=== PATIENT | female | born 1995 | race Caucasian/White ===

== ENCOUNTER 2019-01-19 01:26 | Emergency (ER) | payer OTHER ==
[~2019-01-19] VITALS: Ht 152.4 cm; Wt 125.6 kg
--- NOTE | 2019-01-19 01:42 | NUR ---
PT HERE NOTING N/V FOR APPROX 1-2 WEEKS, ALSO LOWER ABD PAIN, NOTES THAT SHE HAS HAD 2 PREGNANCIES NONE THROUGH TO END. STATES LNMP APPROX ONE MONTH AGO, UNSURE IF AND HAS N OT DONE HOME TEST.
[2019-01-19 01:59] LABS: HCG UR SG 1.022 (1.003-1.030); MICROSCOPIC NOT IND
[2019-01-19 02:00] LABS: CULTURE INDICATED? NO
[2019-01-19] MEDS ORDERED: ONDANSETRON ODT 8 MG PO ONE (02:00)
[2019-01-19] MEDS ORDERED: ONDANSETRON ODT 4 MG ONE (02:10)
--- NOTE | 2019-01-19 02:17 | NUR ---
PT MEDICATED PER MAR. URINE TUBED TO LAB
[2019-01-19 02:22] LABS: ALANINE AMINOTRANSFERASE 37 U/L (12-78); ALBUMIN 3.5 g/dL (3.4-5.0); ANION GAP 7 mmol/L (5-15); CALCIUM 8.6 mg/dL (8.5-10.1); CHLORIDE 106 mmol/L (98-107); CREATININE 0.63 mg/dL (0.55-1.02)
[2019-01-19 02:25] LABS: BASOPHILS # (AUTO) 0.02 x10^3/uL (0-0.1); BASOPHILS % (AUTO) 0 % (0-1); EOSINOPHILS # (AUTO) 0.05 x10^3/uL (0-0.4); EOSINOPHILS % (AUTO) 1 % (1-7); LYMPHOCYTES # (AUTO) 2.02 x10^3/uL (1-3.4); LYMPHOCYTES % (AUTO) 22 % (22-44); MD NO; MEAN CORPUSCULAR HEMOGLOBIN 30.2 pg (27.0-34.8); MEAN CORPUSCULAR HGB CONC 34.1 g/dL (32.4-35.8); MEAN CORPUSCULAR VOLUME 88.5 fL (80-100); MEAN PLATELET VOLUME 8.2 fL (7.4-10.4); MONOCYTES # (AUTO) 0.65 x10^3/uL (0.2-0.8); MONOCYTES % (AUTO) 7 % (2-9); NEUTROPHILS % (AUTO) 71 % (42-75); PLATELET COUNT 339 x10^3/uL (130-400); RED BLOOD COUNT 4.23 x10^6/uL (3.82-5.3)
[2019-01-19 02:39] LABS: ALKALINE PHOSPHATASE 53 U/L (45-117); BILIRUBIN,TOTAL 0.3 mg/dL (0.2-1.0); TOTAL PROTEIN 7.3 g/dL (6.4-8.2)
--- NOTE | 2019-01-19 03:02 | NUR ---
PATIENT BACK FROM US.
--- NOTE | 2019-01-19 03:37 | NUR ---
PT D/C WITH D/C SUMMARY AND SCRIPTS. ALL QUESTIONS ANSWERED. PT VERBALIZES UNDERSTANDING OF NEED TO F/U WITH OB. PT DENIES ANY OTHER NEEDS PERTAINING TO THIS VISIT. WORK NOTE PROVIDED FOR PT AND SPOUSE.
[2019-01-19 03:38] VITALS: BP 109/71
== END 2019-01-19 03:40 | disposition home or self-care (01) ==
LOC: ED 02:02
DX: O21.9 Vomiting of pregnancy, unspecified (principal); R10.2 Pelvic and perineal pain; Z3A.08 8 weeks gestation of pregnancy
CPT/HCPCS: 36415; 76801; 80053; 81003; 81025; 83690; 84702; 85025; 99284; Q0162

== ENCOUNTER 2019-01-30 16:32 | Emergency (ER) | payer OTHER ==
[~2019-01-30] VITALS: Ht 154.9 cm; Wt 123.9 kg
[2019-01-30 16:34] VITALS: BP 128/72
[2019-01-30 17:07] LABS: BASOPHILS % (AUTO) 0 % (0-1); EOSINOPHILS # (AUTO) 0.04 x10^3/uL (0-0.4); EOSINOPHILS % (AUTO) 1 % (1-7); LYMPHOCYTES # (AUTO) 1.77 x10^3/uL (1-3.4); LYMPHOCYTES % (AUTO) 23 % (22-44); MD NO; MEAN CORPUSCULAR HEMOGLOBIN 30.3 pg (27.0-34.8); MEAN CORPUSCULAR HGB CONC 34.1 g/dL (32.4-35.8); MEAN CORPUSCULAR VOLUME 88.8 fL (80-100); MEAN PLATELET VOLUME 8.2 fL (7.4-10.4); MONOCYTES # (AUTO) 0.49 x10^3/uL (0.2-0.8); MONOCYTES % (AUTO) 6 % (2-9); NEUTROPHILS # (AUTO) 5.57 x10^3/uL (1.8-6.8); NEUTROPHILS % (AUTO) 71 % (42-75); PLATELET COUNT 318 x10^3/uL (130-400); RED BLOOD COUNT 4.63 x10^6/uL (3.82-5.3); RED CELL DISTRIBUTION WIDTH 12.8 % (9.6-15.2)
[2019-01-30 17:19] LABS: ALANINE AMINOTRANSFERASE 27 U/L (12-78); ALBUMIN 3.5 g/dL (3.4-5.0); ANION GAP 7 mmol/L (5-15); CALCIUM 8.9 mg/dL (8.5-10.1); CHLORIDE 108 mmol/L (98-107); CREATININE 0.54 mg/dL (0.55-1.02)
[2019-01-30 17:30] LABS: MICROSCOPIC NOT IND
[2019-01-30 17:36] LABS: CULTURE INDICATED? NO
[2019-01-30 17:37] LABS: ALKALINE PHOSPHATASE 50 U/L (45-117); BILIRUBIN,TOTAL 0.3 mg/dL (0.2-1.0); TOTAL PROTEIN 7.5 g/dL (6.4-8.2)
--- NOTE | 2019-01-30 18:14 | NUR ---
NEPTALI RN: RN AT BEDSIDE TO [facility], SPECIMEN WALKED TO LAB.
[2019-01-30 18:40] LABS: CLUE CELLS NONE SEEN (NONE SEEN); WET PREP WBCS NONE SEEN (FEW)
== END 2019-01-30 20:00 | disposition home or self-care (01) ==
LOC: ED 17:06
DX: O20.9 Hemorrhage in early pregnancy, unspecified (principal); Z3A.09 9 weeks gestation of pregnancy
CPT/HCPCS: 36415; 76801; 80053; 81003; 84702; 85025; 87210; 87491; 87591; 87808; 99284

== ENCOUNTER 2019-08-28 03:50 | Inpatient (IN) | payer OTHER ==
[~2019-08-28] VITALS: Ht 157.5 cm; Wt 137.7 kg
[2019-08-28] MEDS: LACTATED RINGERS 1,000 ML IV SCH ×3 (06:30→19:24)
[2019-08-28] MEDS ORDERED: OXYTOCIN 30U/ 0.9% NaCL 500ML 500 ML IV ONE (06:32)
[2019-08-28 06:36] VITALS: BP 129/73
[2019-08-28] MEDS ORDERED: PREN1TAB60 PO (06:36)
[2019-08-28] MEDS ORDERED: OMEG-14 PO (06:36)
[2019-08-28] MEDS ORDERED: NEWBORN KIT ONE (06:43)
[2019-08-28] MEDS ORDERED: TERBUTALINE 1 MG/ML, 1ML IVPush PRN (07:00)
[2019-08-28] MEDS ORDERED: TERBUTALINE 1 MG/ML, 1ML SQ PRN (07:00)
[2019-08-28] MEDS ORDERED: ONDANSETRON 2MG/ML, 2ML IVPush PRN (07:00)
[2019-08-28] MEDS ORDERED: METOCLOPRAMIDE 5 MG/ML, 2ML IVPush PRN (07:00)
[2019-08-28] MEDS ORDERED: FENTANYL PF 100 MCG/2ML IV PRN (07:00)
[2019-08-28] MEDS ORDERED: SODIUM CITRATE/CITRIC ACID 30 ML UDC PO PRN (07:00)
[2019-08-28] MEDS ORDERED: CALCIUM CARBONATE 500 MG TAB.CHEW PO PRN (07:00)
[2019-08-28 07:05] LABS: BASOPHILS # (AUTO) 0.01 x10^3/uL (0-0.1); BASOPHILS % (AUTO) 0 % (0-1); EOSINOPHILS # (AUTO) 0.04 x10^3/uL (0-0.4); EOSINOPHILS % (AUTO) 1 % (1-7); LYMPHOCYTES # (AUTO) 1.87 x10^3/uL (1-3.4); LYMPHOCYTES % (AUTO) 25 % (22-44); MD NO; MEAN CORPUSCULAR HEMOGLOBIN 29.9 pg (27.0-34.8); MEAN CORPUSCULAR HGB CONC 32.9 g/dL (32.4-35.8); MEAN CORPUSCULAR VOLUME 90.9 fL (80-100); MEAN PLATELET VOLUME 9.3 fL (7.4-10.4); MONOCYTES # (AUTO) 0.49 x10^3/uL (0.2-0.8); MONOCYTES % (AUTO) 6 % (2-9); NEUTROPHILS # (AUTO) 5.18 x10^3/uL (1.8-6.8); NEUTROPHILS % (AUTO) 68 % (42-75); PLATELET COUNT 232 x10^3/uL (130-400); RED BLOOD COUNT 3.91 x10^6/uL (3.82-5.3); RED CELL DISTRIBUTION WIDTH 14.4 % (9.6-15.2)
[2019-08-28] MEDS ORDERED: MISOPROSTOL 25 MCG TABLET ONE (07:30)
[2019-08-28] MEDS ORDERED: MISOPROSTOL 25 MCG TABLET VG PRN (07:30)
[2019-08-28] MEDS ORDERED: OXYTOCIN 30U/ 0.9% NaCL 500ML 500 ML IV PRN (11:59)
[2019-08-28] MEDS ORDERED: LIDOCAINE 1%, 20ML ONE (12:03)
[2019-08-28] MEDS ORDERED: OXYTOCIN 30U/ 0.9% NaCL 500ML 500 ML ONE (12:04)
[2019-08-28] MEDS ORDERED: MISOPROSTOL 200 MCG TABLET ONE (12:04)
[2019-08-28] MEDS ORDERED: FENTANYL PF 100 MCG/2ML ONE ×2 (18:14→19:16)
[2019-08-28] MEDS: FENTANYL PF 100 MCG/2ML IVPush PRN ×2 (18:19→19:18)
[2019-08-28] MEDS: D5%-LACTATED RINGERS 1,000 ML IV SCH (18:33)
[2019-08-28] MEDS ORDERED: FENTANYL/BUPIV./NS/PF 250 ML EPIDCONT SCH (18:56)
[2019-08-28] MEDS ORDERED: FENTANYL PF 500 MCG, BUPIVACAINE/PF 0.5%, 30ML 62.5 ML in SODIUM CHLORIDE 0.9% 177.5 ML EPIDCONT SCH ×2 (19:30→20:00)
[2019-08-28] MEDS ORDERED: BUPIVACAINE 0.25% ONE (19:36)
[2019-08-29] MEDS: LACTATED RINGERS 1,000 ML IV SCH ×3 (08:07→23:52)
[2019-08-29] MEDS ORDERED: LACTATED RINGERS 1,000 ML INTUTE SCH (09:00)
[2019-08-29] MEDS ORDERED: LACTATED RINGERS 1,000 ML INTUTE PRN (09:00)
[2019-08-29] MEDS: D5%-LACTATED RINGERS 1,000 ML IV SCH (11:07)
[2019-08-29] MEDS ORDERED: SODIUM CITRATE/CITRIC ACID 30 ML UDC ONE (11:28)
[2019-08-29] MEDS ORDERED: METOCLOPRAMIDE 5 MG/ML, 2ML ONE (11:28)
[2019-08-29] MEDS ORDERED: CEFAZOLIN 1,000 MG ONE ×2 (13:32→13:33)
[2019-08-29] MEDS ORDERED: FENTANYL PF 100 MCG/2ML ONE (13:32)
[2019-08-29] MEDS ORDERED: OXYTOCIN 10 UNITS/ML, 1ML ONE (13:33)
[2019-08-29] MEDS ORDERED: LIDOCAINE 2% 100MG/5ML SYRINGE ONE (13:34)
[2019-08-29] MEDS ORDERED: LIDOCAINE-MPF 2% ,5ML ONE (13:53)
[2019-08-29] MEDS: OXYTOCIN 30U/ 0.9% NaCL 500ML 500 ML IV SCH ×2 (13:59→23:52)
[2019-08-29] MEDS ORDERED: LACTATED RINGERS 1,000 ML IV SCH (13:59)
[2019-08-29] MEDS ORDERED: SIMETHICONE 80 MG CHEW TAB PO PRN (14:00)
[2019-08-29] MEDS ORDERED: MISOPROSTOL 200 MCG TABLET PR PRN (14:00)
[2019-08-29] MEDS ORDERED: BISACODYL 10 MG SUPP PR PRN (14:00)
[2019-08-29] MEDS ORDERED: CARBOPROST TROMETHAMINE 250 MCG/ML, 1ML IM PRN (14:00)
[2019-08-29] MEDS ORDERED: OXYcodone/APAP 5/325MG TABLET PO PRN (14:00)
[2019-08-29] MEDS ORDERED: ACETAMINOPHEN 325 MG TABLET PO PRN (14:00)
[2019-08-29] MEDS ORDERED: ONDANSETRON 2MG/ML, 2ML IV PRN ×2 (14:00→14:30)
[2019-08-29] MEDS ORDERED: GLYCERIN ADULT SUPP PR PRN (14:00)
[2019-08-29] MEDS ORDERED: IBUPROFEN 800 MG TABLET PO PRN (14:00)
[2019-08-29] MEDS ORDERED: METOCLOPRAMIDE 5 MG/ML, 2ML IV PRN (14:00)
[2019-08-29] MEDS ORDERED: METHYLERGONOVINE 0.2 MG/ML IM PRN (14:00)
[2019-08-29] MEDS ORDERED: HYDROmorphone 2 MG/ML, 1ML ONE ×2 (14:06→16:06)
[2019-08-29] MEDS ORDERED: DEXTROSE 47%, 15GM GEL ONE (14:19)
[2019-08-29] MEDS ORDERED: KETOROLAC 30 MG/1 ML ONE (14:20)
[2019-08-29] MEDS: HYDROmorphone 2 MG/ML, 1ML IVPush PRN ×5 (14:26→16:47)
[2019-08-29] MEDS ORDERED: DIPHENHYDRAMINE 50 MG/ML, 1ML IVPush PRN (14:30)
[2019-08-29] MEDS ORDERED: PROMETHAZINE 25 MG/ML, 1ML IV PRN (14:30)
[2019-08-29] MEDS: KETOROLAC 30 MG/1 ML IV SCH ×2 (14:30→20:37)
[2019-08-29] MEDS ORDERED: DEXAMETHASONE 4 MG/ML, 1ML IV PRN (14:30)
[2019-08-29] MEDS ORDERED: LABETALOL 5 MG/ML SYR. (IV ONLY) IV PRN (14:30)
[2019-08-29] MEDS ORDERED: OXYcodone 5 MG/5 ML ORAL.SOL UDC PO PRN (14:30)
[2019-08-29] MEDS ORDERED: MEPERIDINE/PF 25MG/ML,1ML IVPush PRN (14:30)
[2019-08-29] MEDS ORDERED: OXYcodone 5 MG/5 ML ORAL.SOL UDC ONE (14:49)
[2019-08-29] MEDS: morphine SULFATE 10 MG/ML, 1ML IVPush PRN ×2 (17:35→22:46)
[2019-08-29 17:40] VITALS: BP 157/94
[2019-08-29 18:00] LABS: ALANINE AMINOTRANSFERASE 14 U/L (12-78); ALBUMIN 2.2 g/dL (3.4-5.0); ANION GAP 8 mmol/L (5-15); BILIRUBIN, DIRECT 0.5 mg/dL (0.1-0.2); CALCIUM 8.3 mg/dL (8.5-10.1); CHLORIDE 108 mmol/L (98-107)
[2019-08-29 18:03] LABS: CREATININE,URINE RANDOM 39.9 mg/dL
[2019-08-29 18:05] LABS: ALKALINE PHOSPHATASE 74 U/L (45-117); BILIRUBIN,TOTAL 1.1 mg/dL (0.2-1.0); TOTAL PROTEIN 5.8 g/dL (6.4-8.2)
[2019-08-29 18:14] LABS: BASOPHILS # (AUTO) 0.01 x10^3/uL (0-0.1); BASOPHILS % (AUTO) 0 % (0-1); EOSINOPHILS # (AUTO) 0.01 x10^3/uL (0-0.4); EOSINOPHILS % (AUTO) 0 % (1-7); LYMPHOCYTES # (AUTO) 0.68 x10^3/uL (1-3.4); LYMPHOCYTES % (AUTO) 5 % (22-44); MD SCAN; MEAN CORPUSCULAR HGB CONC 33.1 g/dL (32.4-35.8); MEAN CORPUSCULAR VOLUME 90.7 fL (80-100); MEAN PLATELET VOLUME 8.5 fL (7.4-10.4); MONOCYTES # (AUTO) 0.32 x10^3/uL (0.2-0.8); MONOCYTES % (AUTO) 2 % (2-9); NEUTROPHILS # (AUTO) 13.15 x10^3/uL (1.8-6.8); NEUTROPHILS % (AUTO) 93 % (42-75); PLATELET COUNT 240 x10^3/uL (130-400); RED BLOOD COUNT 3.97 x10^6/uL (3.82-5.3); RED CELL DISTRIBUTION WIDTH 14.6 % (9.6-15.2)
[2019-08-29 19:00] VITALS: BP 156/81
[2019-08-29 21:22] LABS: MEAN CORPUSCULAR HEMOGLOBIN 29.3 pg (27.0-34.8); MEAN CORPUSCULAR HGB CONC 32.7 g/dL (32.4-35.8); MEAN CORPUSCULAR VOLUME 89.7 fL (80-100); MEAN PLATELET VOLUME 8.4 fL (7.4-10.4); PLATELET COUNT 235 x10^3/uL (130-400); RED BLOOD COUNT 3.77 x10^6/uL (3.82-5.3); RED CELL DISTRIBUTION WIDTH 14.3 % (9.6-15.2)
[2019-08-29] MEDS: OXYcodone IR 5MG TABLET PO PRN (22:20)
[2019-08-29 22:33] LABS: BASOPHILS # (AUTO) 0.05 x10^3/uL (0-0.1); BASOPHILS % (AUTO) 0 % (0-1); EOSINOPHILS # (AUTO) 0.01 x10^3/uL (0-0.4); EOSINOPHILS % (AUTO) 0 % (1-7); LYMPHOCYTES # (AUTO) 0.87 x10^3/uL (1-3.4); LYMPHOCYTES % (AUTO) 7 % (22-44); MD SCAN; MONOCYTES # (AUTO) 0.71 x10^3/uL (0.2-0.8); MONOCYTES % (AUTO) 5 % (2-9); NEUTROPHILS # (AUTO) 11.74 x10^3/uL (1.8-6.8); NEUTROPHILS % (AUTO) 88 % (42-75)
[2019-08-29] MEDS ORDERED: MORPHINE SULFATE 4 MG/ML, 1ML ONE (22:43)
[2019-08-29] MEDS ORDERED: MORPHINE SULFATE 4 MG/ML, 1ML IVPush PRN (23:00)
[2019-08-29 23:48] VITALS: BP 125/81
[2019-08-30] MEDS: OXYcodone IR 5MG TABLET PO PRN ×5 (02:45→20:18)
[2019-08-30] MEDS: KETOROLAC 30 MG/1 ML IV SCH ×5 (02:45→23:04)
[2019-08-30 02:48] VITALS: BP 122/71
[2019-08-30] MEDS ORDERED: PHARMACOKINETIC MONITORING MC PRN (07:30)
[2019-08-30] MEDS: DOCUSATE 100 MG CAPSULE PO PRN ×2 (07:33→19:14)
[2019-08-30] MEDS: CLINDAMYCIN PMX 900MG/50ML 50 ML IV SCH ×3 (07:33→17:15)
[2019-08-30] MEDS: PRENATAL VIT/IRON/FA 1 EACH TABLET PO SCH (07:33)
[2019-08-30 07:35] VITALS: BP 122/83
[2019-08-30 07:47] LABS: BASOPHILS % (AUTO) 0 % (0-1); EOSINOPHILS # (AUTO) 0.01 x10^3/uL (0-0.4); EOSINOPHILS % (AUTO) 0 % (1-7); LYMPHOCYTES # (AUTO) 1.06 x10^3/uL (1-3.4); LYMPHOCYTES % (AUTO) 9 % (22-44); MD NO; MEAN CORPUSCULAR HEMOGLOBIN 29.5 pg (27.0-34.8); MEAN CORPUSCULAR VOLUME 89.3 fL (80-100); MEAN PLATELET VOLUME 8.9 fL (7.4-10.4); MONOCYTES # (AUTO) 0.71 x10^3/uL (0.2-0.8); MONOCYTES % (AUTO) 6 % (2-9); NEUTROPHILS # (AUTO) 9.65 x10^3/uL (1.8-6.8); NEUTROPHILS % (AUTO) 84 % (42-75); PLATELET COUNT 213 x10^3/uL (130-400); RED BLOOD COUNT 3.68 x10^6/uL (3.82-5.3); RED CELL DISTRIBUTION WIDTH 14.2 % (9.6-15.2)
[2019-08-30] MEDS ORDERED: GENTAMICIN 450 MG in SODIUM CHLORIDE 0.9% 100 ML IV SCH (08:00)
[2019-08-30] MEDS ORDERED: GENTAMICIN PER PHARMACY MC SCH (09:00)
[2019-08-30] MEDS: OXYTOCIN 30U/ 0.9% NaCL 500ML 500 ML IV SCH ×2 (09:59→19:59)
[2019-08-30] MEDS: LACTATED RINGERS 1,000 ML IV SCH ×2 (09:59→19:59)
[2019-08-30 13:58] VITALS: BP 122/77
[2019-08-30 19:05] VITALS: BP 104/68
[2019-08-30 23:45] VITALS: BP 124/82
[2019-08-31] MEDS: CLINDAMYCIN PMX 900MG/50ML 50 ML IV SCH (01:06)
[2019-08-31] MEDS: OXYcodone IR 5MG TABLET PO PRN ×5 (01:14→23:26)
[2019-08-31] MEDS: KETOROLAC 30 MG/1 ML IV SCH (05:10)
[2019-08-31 05:18] VITALS: BP 124/83
[2019-08-31] MEDS: LACTATED RINGERS 1,000 ML IV SCH (05:59)
[2019-08-31] MEDS: OXYTOCIN 30U/ 0.9% NaCL 500ML 500 ML IV SCH (05:59)
[2019-08-31 06:14] LABS: BASOPHILS # (AUTO) 0.02 x10^3/uL (0-0.1); BASOPHILS % (AUTO) 0 % (0-1); EOSINOPHILS % (AUTO) 1 % (1-7); LYMPHOCYTES # (AUTO) 1.53 x10^3/uL (1-3.4); LYMPHOCYTES % (AUTO) 17 % (22-44); MD NO; MEAN CORPUSCULAR HGB CONC 32.8 g/dL (32.4-35.8); MEAN CORPUSCULAR VOLUME 91.5 fL (80-100); MEAN PLATELET VOLUME 8.6 fL (7.4-10.4); MONOCYTES % (AUTO) 9 % (2-9); NEUTROPHILS % (AUTO) 73 % (42-75); PLATELET COUNT 229 x10^3/uL (130-400); RED BLOOD COUNT 3.57 x10^6/uL (3.82-5.3)
[2019-08-31 08:20] VITALS: BP 131/85
[2019-08-31] MEDS: DOCUSATE 100 MG CAPSULE PO PRN (08:30)
[2019-08-31] MEDS: PRENATAL VIT/IRON/FA 1 EACH TABLET PO SCH (08:30)
[2019-08-31] MEDS: IBUPROFEN 600 MG TABLET PO PRN ×2 (11:47→18:47)
[2019-08-31 19:53] VITALS: BP 121/78
[2019-09-01] MEDS: IBUPROFEN 600 MG TABLET PO PRN ×4 (00:18→19:18)
[2019-09-01] MEDS: PRENATAL VIT/IRON/FA 1 EACH TABLET PO SCH (07:59)
[2019-09-01] MEDS: DOCUSATE 100 MG CAPSULE PO PRN (07:59)
[2019-09-01 08:00] VITALS: BP 119/81
[2019-09-01] MEDS: OXYcodone IR 5MG TABLET PO PRN ×2 (08:00→22:07)
[2019-09-01 17:00] VITALS: BP 110/74
[2019-09-01 19:23] VITALS: BP 135/80
[2019-09-02] MEDS: IBUPROFEN 600 MG TABLET PO PRN ×3 (02:27→16:40)
[2019-09-02] MEDS: DOCUSATE 100 MG CAPSULE PO PRN (11:00)
[2019-09-02] MEDS: PRENATAL VIT/IRON/FA 1 EACH TABLET PO SCH (11:00)
[2019-09-02] MEDS ORDERED: IBUP-1222 PO (11:26)
[2019-09-02] MEDS ORDERED: OXYC-302 PO (11:27)
[2019-09-02 12:10] VITALS: BP 120/78
[2019-09-02] MEDS: OXYcodone IR 5MG TABLET PO PRN ×2 (12:16→16:41)
== END 2019-09-02 16:50 | disposition home or self-care (01) | DRG 787 ==
LOC: LDIP 06:10 → 2NW 08-29 17:10
PROVIDERS: ADMIT Student in an Organized Health Care Education/Training Program; ATTEND Student in an Organized Health Care Education/Training Program
PROC: 10907ZC Drainage of Amniotic Fluid, Therapeutic from Products of Conception, Via Natural or Artificial Opening (ICD-10-PCS; principal; 2019-08-29)
PROC: 10D00Z1 Extraction of Products of Conception, Low, Open Approach (ICD-10-PCS; 2019-08-29)
PROC: 10H07YZ Insertion of Other Device into Products of Conception, Via Natural or Artificial Opening (ICD-10-PCS; 2019-08-29)
PROC: 3E033VJ Introduction of Other Hormone into Peripheral Vein, Percutaneous Approach (ICD-10-PCS; 2019-08-29)
DX: O76 Abnormality in fetal heart rate and rhythm complicating labor and delivery (principal); O86.12 Endometritis following delivery; O99.214 Obesity complicating childbirth; Z37.0 Single live birth; E66.01 Morbid (severe) obesity due to excess calories; E78.00 Pure hypercholesterolemia, unspecified; G89.18 Other acute postprocedural pain; O16.5 Unspecified maternal hypertension, complicating the puerperium; O62.2 Other uterine inertia; O99.284 Endocrine, nutritional and metabolic diseases complicating childbirth; O75.89 Other specified complications of labor and delivery; Z87.891 Personal history of nicotine dependence; Z83.3 Family history of diabetes mellitus; Z82.49 Family history of ischemic heart disease and other diseases of the circulatory system; Z82.3 Family history of stroke; Z3A.40 40 weeks gestation of pregnancy
CPT/HCPCS: 36415; J7121; S0020; 80053; 80170; 82248; 82570; 82803; 84156; 84550; 85025; 86850; 86900; 87040; G0378; J0690; J1170; J1885; J3010; J1580; J2270; J2590; J2765; J7050; J7120

== ENCOUNTER 2019-09-08 11:52 | Emergency (ER) | payer OTHER ==
[~2019-09-08] VITALS: Ht 154.9 cm; Wt 132.0 kg
[~2019-09-08 11:52] MED LIST: IBUP-1222 PO; OMEG-14 PO; OXYC-302 PO; PREN1TAB60 PO
[2019-09-08 12:08] VITALS: BP 124/64
--- NOTE | 2019-09-08 13:05 | NUR ---
Pt to room from [facility], ambulatory with steady gait.
--- NOTE | 2019-09-08 13:09 | NUR ---
THIS RN ATTEMPTING TO CONTACT INPATIENT WOUND CARE FOR WOUND VAC DRESSING CHANGE.
--- NOTE | 2019-09-08 13:12 | NUR ---
VOICEMAIL LEFT FOR WOUND CARE INPATIENT REGARDING NEED FOR DRESSING CHANGE.
--- NOTE | 2019-09-08 13:44 | NUR ---
WOUND CARE CONTACTED AGAIN. PLAN TO COME AND SEE PT DUE TO PT COMPLAINT OF "FOUL SMELLING ODOR."
--- NOTE | 2019-09-08 13:57 | NUR ---
[employer] TECHNICAL OFFICER AT BEDSIDE, PLAN TO DRESS WOUND WITH ISLAND DRESSING AND EDUCATION PROVIDED TO PT ABOUT WOUND CARE.
--- NOTE | 2019-09-08 14:27 | NUR ---
Patient/Caregiver given discharge instructions and they have confirmed that they understand the instructions. Patient ambulatory with steady gait.
== END 2019-09-08 14:29 | disposition home or self-care (01) ==
LOC: ED 14:19
DX: Z48.01 Encounter for change or removal of surgical wound dressing (principal)
CPT/HCPCS: 99283

== ENCOUNTER 2021-02-26 14:04 | Outpatient (CLI) | payer SELFPAY ==
[~2021-02-26] VITALS: Ht 157.5 cm; Wt 145.4 kg
[~2021-02-26 14:04] MED LIST changes: -OXYC-302 PO; +OXYC1TAB14 PO
[2021-02-26 14:54] LABS: MICROSCOPIC INDICATED
[2021-02-26 15:02] VITALS: BP 126/61
[2021-02-26 15:03] LABS: AMPHETAMINE SCREEN, URINE Negative (Negative); BARBITURATE SCREEN, URINE Negative (Negative); BENZODIAZEPINE SCREEN, URINE Negative (Negative); CANNABINOID SCREEN, URINE Negative (Negative); COCAINE SCREEN, URINE Negative (Negative); METHADONE SCREEN, URINE Negative (Negative); OPIATE SCREEN, URINE Negative (Negative)
== END 2021-02-26 16:22 | disposition home or self-care (01) ==
LOC: LDOP 14:04
PROVIDERS: ATTEND Obstetrics & Gynecology
DX: O9A.212 Injury, poisoning and certain other consequences of external causes complicating pregnancy, second trimester (principal); Z3A.21 21 weeks gestation of pregnancy
CPT/HCPCS: 76805; 80307; 81001; 87086; 99211; G0463

== ENCOUNTER 2021-06-30 10:58 | Inpatient (IN) | payer MEDICAID, OTHER ==
[~2021-06-30] VITALS: Ht 157.5 cm; Wt 143.1 kg
[~2021-06-30 10:58] MED LIST changes: +OXYC1TAB12 PO; -OXYC1TAB14 PO
[2021-06-30] MEDS ORDERED: SODIUM CITRATE/CITRIC ACID 15 ML UDC ONE (11:19)
[2021-06-30] MEDS ORDERED: OXYTOCIN 30U/ 0.9% NaCL 500ML 500 ML ONE (11:19)
[2021-06-30] MEDS ORDERED: NEWBORN KIT ONE (11:19)
[2021-06-30] MEDS ORDERED: LACTATED RINGERS 1,000 ML IV SCH (11:30)
[2021-06-30] MEDS ORDERED: METOCLOPRAMIDE 5 MG/ML, 2ML IV ONE (11:30)
[2021-06-30] MEDS ORDERED: SODIUM CITRATE/CITRIC ACID 30 ML UDC PO ONE (11:30)
[2021-06-30] MEDS ORDERED: PLEASE ENTER HEIGHT AND WEIGHT MC SCH (11:30)
[2021-06-30] MEDS ORDERED: LACTATED RINGERS 1,000 ML IVBOLUS ONE (11:30)
[2021-06-30] MEDS ORDERED: CEFAZOLIN 1,000 MG ONE ×3 (11:31→12:01)
[2021-06-30] MEDS ORDERED: KETOROLAC 30 MG/1 ML ONE (11:31)
[2021-06-30] MEDS ORDERED: FENTANYL PF 100 MCG/2ML ONE (11:31)
[2021-06-30] MEDS ORDERED: OXYTOCIN 10 UNITS/ML, 1ML ONE ×3 (11:31)
[2021-06-30 11:49] LABS: BASOPHILS % (AUTO) 0 % (0-1); EOSINOPHILS % (AUTO) 0 % (1-7); LYMPHOCYTES % (AUTO) 20 % (22-44); MEAN CORPUSCULAR HEMOGLOBIN 29.5 pg (27.0-34.8); MEAN CORPUSCULAR HGB CONC 33.6 g/dL (32.4-35.8); MEAN PLATELET VOLUME 8.6 fL (7.4-10.4); MONOCYTES % (AUTO) 7 % (2-9); NEUTROPHILS % (AUTO) 72 % (42-75); PLATELET COUNT 241 x10^3/uL (130-400); RED CELL DISTRIBUTION WIDTH 14.4 % (9.6-15.2)
[2021-06-30 12:04] VITALS: BP 140/74
[2021-06-30] MEDS ORDERED: BISACODYL 10 MG SUPP PR PRN (12:30)
[2021-06-30] MEDS ORDERED: MORPHINE SULFATE 4 MG/ML, 1ML IVPush PRN (12:30)
[2021-06-30] MEDS ORDERED: KETOROLAC 30 MG/1 ML IV SCH (12:30)
[2021-06-30] MEDS ORDERED: OXYcodone/APAP 5/325MG TABLET PO PRN (12:30)
[2021-06-30] MEDS ORDERED: ONDANSETRON 2MG/ML, 2ML IV PRN (12:30)
[2021-06-30] MEDS ORDERED: TRANEXAMIC ACID 1,000 MG in SODIUM CHLORIDE 0.9% 100 ML IVPB ONE (12:30)
[2021-06-30] MEDS ORDERED: MISOPROSTOL 200 MCG TABLET PO PRN (12:30)
[2021-06-30] MEDS ORDERED: METOCLOPRAMIDE 5 MG/ML, 2ML IV PRN (12:30)
[2021-06-30] MEDS ORDERED: METHYLERGONOVINE 0.2 MG/ML IM PRN (12:30)
[2021-06-30] MEDS ORDERED: CARBOPROST TROMETHAMINE 250 MCG/ML, 1ML IM PRN (12:30)
[2021-06-30] MEDS ORDERED: GLYCERIN ADULT SUPP PR PRN (12:30)
[2021-06-30] MEDS: LACTATED RINGERS 1,000 ML IV SCH ×4 (12:30→22:30)
[2021-06-30] MEDS ORDERED: PHENYLEPHRINE 10 MG/ML ONE (13:17)
[2021-06-30] MEDS ORDERED: EPHEDRINE 50 MG/ML, 1ML ONE (13:17)
[2021-06-30] MEDS ORDERED: OXYcodone 5 MG/5 ML ORAL.SOL UDC PO PRN (14:00)
[2021-06-30] MEDS ORDERED: ONDANSETRON 2MG/ML, 2ML IVPush PRN (14:00)
[2021-06-30] MEDS ORDERED: FENTANYL PF 100 MCG/2ML IV PRN (14:00)
[2021-06-30] MEDS ORDERED: DIPHENHYDRAMINE 50 MG/ML, 1ML IVPush PRN (14:00)
[2021-06-30] MEDS ORDERED: EPHEDRINE 50 MG/ML, 1ML IVPush PRN (14:00)
[2021-06-30] MEDS ORDERED: HYDROmorphone 1 MG/ML, 1ML INJ IVPush PRN (14:00)
[2021-06-30] MEDS ORDERED: ACETAMINOPHEN 325 MG TABLET PO PRN (14:00)
[2021-06-30] MEDS ORDERED: LABETALOL 5MG/ML, 20ML IV PRN (14:00)
[2021-06-30] MEDS ORDERED: ALBUTEROL SULFATE 2.5 MG/3 ML NPPB PRN (14:00)
[2021-06-30] MEDS: OXYTOCIN 30U/ 0.9% NaCL 500ML 500 ML IV SCH ×2 (14:12→22:30)
[2021-06-30 15:20] VITALS: BP 146/65
[2021-06-30] MEDS: OXYcodone IR 5MG TABLET PO PRN ×2 (17:08→21:08)
[2021-06-30 20:12] VITALS: BP 114/68
[2021-06-30] MEDS: KETOROLAC 30 MG/1 ML IV SCH (20:19)
[2021-06-30] MEDS: DOCUSATE 100 MG CAPSULE PO PRN (20:19)
[2021-06-30 21:12] LABS: BASOPHILS % (AUTO) 0 % (0-1); EOSINOPHILS % (AUTO) 0 % (1-7); LYMPHOCYTES % (AUTO) 18 % (22-44); MEAN CORPUSCULAR HEMOGLOBIN 29.5 pg (27.0-34.8); MEAN CORPUSCULAR HGB CONC 33.8 g/dL (32.4-35.8); MEAN PLATELET VOLUME 8.5 fL (7.4-10.4); MONOCYTES % (AUTO) 7 % (2-9); NEUTROPHILS % (AUTO) 74 % (42-75); PLATELET COUNT 225 x10^3/uL (130-400); RED BLOOD COUNT 3.75 x10^6/uL (3.82-5.3); RED CELL DISTRIBUTION WIDTH 14.6 % (9.6-15.2)
[2021-07-01 00:16] VITALS: BP 113/59
[2021-07-01] MEDS: OXYcodone IR 5MG TABLET PO PRN ×6 (01:03→23:39)
[2021-07-01] MEDS: KETOROLAC 30 MG/1 ML IV SCH ×4 (02:18→14:30)
[2021-07-01] MEDS ORDERED: IBUPROFEN 600 MG TABLET ONE (02:24)
[2021-07-01] MEDS: IBUPROFEN 200 MG TABLET PO PRN ×2 (03:02→10:45)
[2021-07-01 04:25] VITALS: BP 115/62
[2021-07-01] MEDS: LACTATED RINGERS 1,000 ML IV SCH ×5 (04:28→19:05)
[2021-07-01] MEDS: OXYTOCIN 30U/ 0.9% NaCL 500ML 500 ML IV SCH ×2 (08:30→18:30)
[2021-07-01 08:40] VITALS: BP 133/69
[2021-07-01] MEDS: PRENATAL VIT/IRON/FA 1 EACH TABLET PO SCH (10:43)
[2021-07-01] MEDS: DOCUSATE 100 MG CAPSULE PO PRN ×2 (10:43→19:15)
[2021-07-01] MEDS: ACETAMINOPHEN 325 MG TABLET PO PRN ×4 (10:44→23:38)
[2021-07-01] MEDS: SIMETHICONE 80 MG CHEW TAB PO PRN ×2 (12:30→19:16)
[2021-07-01 15:11] VITALS: BP 137/80
[2021-07-01] MEDS: KETOROLAC 30 MG/1 ML IM SCH ×2 (16:27→22:11)
[2021-07-01] MEDS ORDERED: MEPERIDINE/PF 50 MG/ML IVPush PRN (16:30)
[2021-07-01 19:34] VITALS: BP 120/70
[2021-07-02] MEDS: LACTATED RINGERS 1,000 ML IV SCH ×2 (03:44)
[2021-07-02] MEDS: OXYTOCIN 30U/ 0.9% NaCL 500ML 500 ML IV SCH (03:44)
[2021-07-02] MEDS: OXYcodone IR 5MG TABLET PO PRN ×3 (04:16→12:13)
[2021-07-02] MEDS: SIMETHICONE 80 MG CHEW TAB PO PRN (04:16)
[2021-07-02] MEDS: ACETAMINOPHEN 325 MG TABLET PO PRN ×3 (04:16→12:13)
[2021-07-02] MEDS: KETOROLAC 30 MG/1 ML IM SCH ×2 (04:16→10:41)
[2021-07-02 08:00] VITALS: BP 131/84
[2021-07-02] MEDS: PRENATAL VIT/IRON/FA 1 EACH TABLET PO SCH (08:22)
[2021-07-02] MEDS: DOCUSATE 100 MG CAPSULE PO PRN (08:22)
[2021-07-02] MEDS ORDERED: OXYC1TAB12 PO (08:32)
[2021-07-02] MEDS ORDERED: IBUP-1902 PO (08:32)
[2021-07-02] MEDS ORDERED: IBUPROFEN 600 MG TABLET PO PRN (12:30)
== END 2021-07-02 13:30 | disposition home or self-care (01) | DRG 787 ==
LOC: LDIP 10:58 → 2NW 15:23
PROVIDERS: ADMIT Student in an Organized Health Care Education/Training Program; ATTEND Student in an Organized Health Care Education/Training Program
PROC: 10D00Z1 Extraction of Products of Conception, Low, Open Approach (ICD-10-PCS; principal; 2021-06-30)
DX: O34.211 Maternal care for low transverse scar from previous cesarean delivery (principal); D62 Acute posthemorrhagic anemia; O99.214 Obesity complicating childbirth; E78.00 Pure hypercholesterolemia, unspecified; O99.284 Endocrine, nutritional and metabolic diseases complicating childbirth; O90.81 Anemia of the puerperium; Z37.0 Single live birth; Z3A.39 39 weeks gestation of pregnancy; Z20.822 Contact with and (suspected) exposure to COVID-19; Z80.0 Family history of malignant neoplasm of digestive organs; Z82.3 Family history of stroke; Z82.49 Family history of ischemic heart disease and other diseases of the circulatory system; Z87.891 Personal history of nicotine dependence; Z86.59 Personal history of other mental and behavioral disorders
CPT/HCPCS: 36415; 85025; 86592; 86850; 86900; 87635; G0378; J0690; J1885; J3010; J2370; J2590; J2765; J7120